=== PATIENT | female | born 1990 | race Caucasian/White ===

== ENCOUNTER 2017-02-13 18:18 | Inpatient (IN) | payer MEDICAID ==
[2017-02-13 19:42] LABS: ROM Internal QC QC Line Present
[2017-02-13] MEDS ORDERED: Oxytocin in LR* 20 UNITS/1,000 ML BAG IVPB SCH (20:00)
[2017-02-13 20:45] LABS: Hematocrit 39 % (35-47); Hemoglobin 13.2 g/dl (12.0-16.0); Mean Corpuscular HGB Conc 34 g/dl (31-36); Mean Corpuscular Hemoglobin 30 pg (27-31); Mean Corpuscular Volume 88 fL (80-97); Mean Platelet Volume 9 um3 (7.4-10.4); Red Blood Count 4.39 10^6/ul (4.0-5.4); Red Cell Distribution Width 13 % (10.5-15); White Blood Count 12.9 10^3/ul (3.5-10.8)
[2017-02-13] MEDS ORDERED: OBEPIDURAL* 250 ML ONE (22:11)
[2017-02-13] MEDS ORDERED: Sodium Citrate/Citric Acid* 15 ML UDC PO PRN (23:04)
[2017-02-13] MEDS ORDERED: Famotidine TAB* 20 MG PO PRN (23:04)
[2017-02-13] MEDS ORDERED: Phenylephrine IV* 40 MCG/ML 10 ML SYRINGE IV PUSH PRN ×2 (23:04)
[2017-02-13] MEDS ORDERED: OBEPIDURAL* 250 ML EPIDURAL SCH (23:45)
[2017-02-14] MEDS ORDERED: Witch Hazel PAD* JAR TOPICAL PRN (00:18)
[2017-02-14] MEDS ORDERED: Glycerin ADULT SUPP PR PRN (00:18)
[2017-02-14] MEDS ORDERED: Dibucaine 1% 28.35 GM TUBE PR PRN (00:18)
[2017-02-14] MEDS: Ibuprofen TAB* 600 MG PO PRN ×3 (03:28→17:16)
[2017-02-14] MEDS: Acetaminophen TAB* 325 MG PO PRN ×2 (08:32→20:11)
[2017-02-14] MEDS: Simethicone CHEW TAB* 80 MG PO SCH ×2 (08:32→12:30)
[2017-02-14] MEDS: Docusate CAP* 100 MG PO SCH ×3 (08:32→20:11)
[2017-02-15] MEDS: Ibuprofen TAB* 600 MG PO PRN ×2 (00:23→07:55)
[2017-02-15 08:11] VITALS: BP 139/90
[2017-02-15 08:12] LABS: Hematocrit 42 % (35-47); Hemoglobin 14.2 g/dl (12.0-16.0); Mean Corpuscular HGB Conc 34 g/dl (31-36); Mean Corpuscular Hemoglobin 30 pg (27-31); Mean Corpuscular Volume 89 fL (80-97); Mean Platelet Volume 9 um3 (7.4-10.4); Red Blood Count 4.71 10^6/ul (4.0-5.4); Red Cell Distribution Width 13 % (10.5-15); White Blood Count 10.9 10^3/ul (3.5-10.8)
[2017-02-15] MEDS ORDERED: Ferrous Gluconate TAB* 324 MG TAB PO SCH (09:00)
[2017-02-15] MEDS ORDERED: Varicella Virus Vaccine Live* 0.5 ML VIAL SUBCUT ONE (10:04)
[2017-02-15] MEDS: Docusate CAP* 100 MG PO SCH (11:02)
== END 2017-02-15 14:15 | disposition home or self-care (01) | DRG 560 ==
LOC: MCHOBOUT 18:18 → MCHOB 19:49
PROVIDERS: ADMIT Midwife; ATTEND Midwife
PROC: 10E0XZZ Delivery of Products of Conception, External Approach (ICD-10-PCS; principal; 2017-02-13)
PROC: 4A1HXCZ Monitoring of Products of Conception, Cardiac Rate, External Approach (ICD-10-PCS; 2017-02-13)
DX: O69.81X0 Labor and delivery complicated by cord around neck, without compression, not applicable or unspecified (principal); Z88.0 Allergy status to penicillin; O69.89X0 Labor and delivery complicated by other cord complications, not applicable or unspecified; Z88.1 Allergy status to other antibiotic agents; Z37.0 Single live birth; Z3A.37 37 weeks gestation of pregnancy
CPT/HCPCS: 36415; 84112; 85025; 86850; 86900; 86901; A9270-GY

== ENCOUNTER 2017-04-15 13:17 | Emergency (ER) | payer OTHER ==
[2017-04-15 13:35] VITALS: BP 130/86
--- NOTE | 2017-04-15 14:36 | UC ---
Dental HPI - HPI Summary HPI Summary: BROKE TOOTH TWO WEEKS AGO TODAY HAS HAS RIGHT SIDED DENTAL SWELLING. NO FEVER. NO PRIMARY CARE. HAS DENTAL APPOINTMENT SCHEDULED FOR NEXT WEEK. - History of Current Complaint Chief Complaint: UCDentalProblem Stated Complaint: DENTAL COMPLAINT Time Seen by Provider: 04/15/17 13:31 Hx Obtained From: Patient Hx Last Menstrual Period: 03/14/17 Onset/Duration: Gradual Onset, Lasting Days, Still Present Severity: Moderate Pain Intensity: 3 Pain Scale Used: 0-10 Numeric Aggravating: Chewing Alleviating: OTC Meds Related History: Previous Dental Care on Same Tooth, Swelling - Allergies/Home Medications Allergies/Adverse Reactions: Allergies Allergy/AdvReac Type Severity Reaction Status Date / Time Penicillin G Allergy Rash Verified 04/15/17 13:34 Amoxicillin AdvReac Intermediate Rash Verified 04/15/17 13:34 PMH/Surg Hx/FS Hx/Imm Hx Previously Healthy: Yes Other History Of: Negative For: Anticoagulant Therapy - Surgical History Surgical History: Yes Surgery Procedure, Year, and Place: Tendonitis surgery LEFT wrist - Family History Known Family History: Positive: None - Social History Occupation: Unemployed Alcohol Use: Occasionally Substance Use Type: None Smoking Status (MU): Heavy Every Day Tobacco Smoker Type: eCigarettes Amount Used/How Often: 1/2ppd Have You Smoked in the Last Year: Yes Household Exposure Type: Cigarettes Cessation Counseling: Counseled 3+Min - 10 Min - Immunization History Most Recent Influenza Vaccination: unknown Most Recent Tetanus Shot: 05/31/13 Most Recent Pneumonia Vaccination: never received Review of Systems Constitutional: Negative Skin: Negative Eyes: Negative ENT: Dental Pain Respiratory: Negative Cardiovascular: Negative Gastrointestinal: Negative Genitourinary: Negative Motor: Negative Neurovascular: Negative Musculoskeletal: Negative Neurological: Negative Psychological: Negative All Other Systems Reviewed And Are Negative: Yes Physical Exam Triage Information Reviewed: Yes Appearance: Well-Appearing, No Pain Distress, Well-Nourished Vital Signs: Initial Vital Signs Temp 97.6 F 04/15/17 13:30 Pulse 107 04/15/17 13:30 Resp 16 04/15/17 13:30 BP 130/86 04/15/17 13:30 Pulse Ox 100 04/15/17 13:30 Vital Signs Reviewed: Yes Eye Exam: Normal ENT Exam: Normal ENT: Positive: Normal ENT inspection Dental: Positive: Gross Decay/Caries @, Dental Fracture @ - 3,4,5, Abscess @ - 3 ,4,5 Neck exam: Normal Respiratory Exam: Normal Respiratory: Positive: Chest non-tender, Lungs clear, Normal breath sounds, No respiratory distress, No accessory muscle use Cardiovascular Exam: Normal Cardiovascular: Positive: RRR, No Murmur Abdominal Exam: Normal Musculoskeletal Exam: Normal Musculoskeletal: Positive: Strength Intact, ROM Intact Neurological Exam: Normal Psychological Exam: Normal Skin Exam: Normal Dental Complaint Course/Dx - Differential Dx/Diagnosis Differential Diagnosis/Dx: Dental Abscess, Dental Caries, Fractured Tooth Provider Diagnoses: DENTAL ABSCESS 3,4,5; CARIES Discharge - Discharge Plan Condition: Stable Disposition: HOME Prescriptions: Acetaminop/Codeine 30 MG TAB* [Tylenol/Codeine 30 MG TAB*] 1 tab PO Q8H PRN #9 tab MDD three tabs PRN Reason: Pain Clindamycin Cap(NF) [Clindamycin Cap 300 mg Cap(NF)] 300 mg PO TID #30 cap Patient Education Materials: Toothache (ED), Dental Abscess (ED) Referrals: No Primary Care Phys,NOPCP [Primary Care Provider] - [facility] [place] [facility] [place]] Additional Instructions: PRIMARY CARE: There are four major types of clinical preventive care: immunizations, screening , behavioral counseling (sometimes referred to as lifestyle changes), and chemoprevention. All four apply throughout the life span. It is important to establish and to have access to a Primary Care Physician, not only for follow- up regrding acute and chronic problems, but also for preventative care.
== END 2017-04-15 14:02 | disposition home or self-care (01) ==
LOC: UCEAST 13:17
DX: K04.7 Periapical abscess without sinus (principal); K02.9 Dental caries, unspecified; Z88.3 Allergy status to other anti-infective agents; Z88.0 Allergy status to penicillin; F17.210 Nicotine dependence, cigarettes, uncomplicated
CPT/HCPCS: 99212; G0463

== ENCOUNTER 2018-09-28 14:20 | Inpatient (IN) | payer OTHER ==
[2018-09-28] MEDS ORDERED: Lactated Ringers 1000 ML Bag* 1,000 ML IV ONE ×2 (14:26→20:55)
[2018-09-28] MEDS ORDERED: Buffered Lidocaine 1% SYRIN* 1 ML/SYRINGE INTRADERM ONE (14:26)
[2018-09-28] MEDS ORDERED: Lactated Ringers 1000 ML Bag* 1,000 ML IV SCH ×3 (15:00→23:45)
[2018-09-28 15:32] LABS: ABS Basophils 0.1 10^3/ul (0-0.2); ABS Eosinophils 0.1 10^3/ul (0-0.6); ABS Lymphocytes 2.3 10^3/ul (1.0-4.8); ABS Monocytes 1.1 10^3/ul (0-0.8); ABS Neutrophils 10.4 10^3/ul (1.5-7.7); ABS Nucleated RBC 0 10^3/ul; Eosinophil % 0.5 %; Hematocrit 39 % (35-47); Hemoglobin 13.3 g/dl (12.0-16.0); Lymphocyte % 16.4 %; Mean Corpuscular HGB Conc 34 g/dl (31-36); Mean Corpuscular Hemoglobin 30 pg (27-31); Mean Corpuscular Volume 88 fL (80-97); Mean Platelet Volume 8.7 fL (7.4-10.4); Nucleated Red Blood Cells % 0.1; Platelet Count 239 10^3/ul (150-450); Red Blood Count 4.44 10^6/ul (4.00-5.40); Red Cell Distribution Width 14 % (10.5-15); White Blood Count 13.9 10^3/ul (3.5-10.8)
--- NOTE | 2018-09-28 17:31 | HP ---
General Information - Reason for Visit labor - General Information Maternal Age: 28 Grav: 5 Para: 4 SAB: 0 IEA: 0 Estimated Due Date: 10/10/18 Determined By: ultrasound at 32 weeks Maternal Blood Type and Rh: AB Positive - Results this Serology/RPR Result: Non-Reactive Rubella Result: Immune HBsAg Result: Negative HIV Result: Negative GBS Culture Result: Negative Past Medical History Delivery History: Hx Uncomplicated Vaginal Delivery Pertinent Past Medical History: See Records - hx GDM, asthma Pertinent Past Surgical History: None Pertinent Family History: See Records - HTN, DM - Antepartal Records Antepartal Records: Reviewed, Complicated by: - late to care, tobacco use Review of Systems Constitutional: Uncomfortable CV Complaint: No Respiratory: Shortness of Breath: No Gastrointestinal: No Nausea/Vomiting, Normal Bowel Movement Genitourinary: No Dysuria, No Bleeding, No Leaking Fluid Musculoskeletal: Contractions, Pressure Neurological: No Headache, No Visual Changes Movement: Normal Exam Allergies/Adverse Reactions: Allergies amoxicillin Allergy (Verified 09/28/18 15:17) Rash Penicillins Allergy (Verified 09/28/18 15:17) Rash BP:139/86, O2: 98%, T:97.8, P:116, R:17 Lab Values - Entire Visit: Laboratory Tests 09/28/18 09/28/18 15:23 15:23 WBC 13.9 H RBC 4.44 Hgb 13.3 Hct 39 MCV 88 MCH 30 MCHC 34 RDW 14 Plt Count 239 MPV 8.7 Neut % (Auto) 74.8 Lymph % (Auto) 16.4 Hartley % (Auto) 7.8 Eos % (Auto) 0.5 Baso % (Auto) 0.5 Absolute Neuts (auto) 10.4 H Absolute Lymphs (auto) 2.3 Absolute Monos (auto) 1.1 H Absolute Eos (auto) 0.1 Absolute Basos (auto) 0.1 Absolute Nucleated RBC 0 Nucleated RBC % 0.1 Blood Type AB Positive Antibody Screen Negative - Measurements Height: 5 ft 1 in Weight: 153 lb Weight in lbs: 153.923508 Body Mass Index (BMI): 28.9 Pre- Weight: 131 lb Weight Gained This : 22 lbs and 0 ozs - Exam Breast: Breast Exam Deferred CVA: No CVA Tenderness Extremities: No Edema Heart: Normal Rhythm/Heart Sounds HEENT: No Significant Findings Lungs: Clear Bilaterally Rectal: Rectal Exam Deferred Reflexes: DTR 2+ Thyroid: No Thyromegaly - Abdominal Exam Abdomen Exam: Fundal Height Consistent with Dates - Ultrasound/Biophysical Profile Ultrasound Status: Not Done Targeted Exam Findings Estimated Weight: 6lbs 13oz Cervical Exam: 7cm Effacement: 100% Station: 0 Presenting Part: Vertex Membrane Status: Bulging Bleeding/Discharge: Bloody Show EFM Findings - External Monitor Findings Baseline Heart Rate: 140 External Monitor Findings: Accelerations Present, No Pattern of Variable or Late Decelerations, Variability Moderate, Baseline Stable Contractions: Irregular, Moderate, 45-90 Seconds Contraction Frequency: 3-10 Assessment/Plan - Assessment 28 y.o. , 38w3d EGA based on third trimester ultrasound, Elevated 1hr GTT (3hr GCT not done), in labor - Obstetrical Risk Factors Obstetrical Risk Factors: Tobacco Use Risk Factors Comment: late to care - Plan Plan: Admit - Anticipate Vaginal Delivery - Date/Time of Admission Date of Admission: 09/28/18 Time of Admission: 15:30
[2018-09-28] MEDS ORDERED: Oxytocin in LR* 20 UNITS/1,000 ML BAG IVPB ONE (20:37)
[2018-09-28] MEDS ORDERED: Bupivacaine 0.25% SDV PF* 10 ML VIAL INJ ONE (20:46)
[2018-09-28] MEDS ORDERED: Famotidine TAB* 20 MG PO PRN (20:55)
[2018-09-28] MEDS ORDERED: EPHEDrine (Pressors)* 50 MG/ML VIAL IV PUSH PRN (20:55)
[2018-09-28] MEDS ORDERED: Phenylephrine IV* 40 MCG/ML 10 ML SYRINGE IV PUSH PRN (20:55)
[2018-09-28] MEDS ORDERED: Sodium Citrate/Citric Acid* 15 ML UDC PO PRN (20:55)
[2018-09-28] MEDS ORDERED: OBEPIDURAL* 250 ML EPIDURAL SCH (21:00)
[2018-09-28] MEDS ORDERED: OBEPIDURAL* 250 ML EPIDURAL ONE (21:05)
--- NOTE | 2018-09-28 21:20 | PN ---
Progress Note - Progress Note Date of Service: 09/28/18 SOAP: Subjective: [Pt comfortable with epidural. Pt reports LOF.] Objective: [BP:123/68, P: 125 FHT: 145bpm, + accels, -decels, moderate variability] Assessment: [28 y.o. , FT, active labor] Plan: [1) anticipate vaginal delivery]
[2018-09-28] MEDS ORDERED: Carboprost Tromethamine* 250 MCG INJ ONE (22:47)
[2018-09-28] MEDS ORDERED: Methylergonovine INJ* 0.2 MG/ML 1ML AMP ONE (23:00)
[2018-09-28] MEDS ORDERED: Glycerin ADULT SUPP PR PRN (23:26)
[2018-09-28] MEDS ORDERED: Dibucaine 1% 28.35 GM TUBE PR PRN (23:26)
[2018-09-28] MEDS ORDERED: Witch Hazel PAD* JAR TOPICAL PRN (23:26)
[2018-09-28] MEDS ORDERED: Nicotine Inhaler* 10 MG AMP INH PRN (23:29)
--- NOTE | 2018-09-28 23:33 | PROCNOTE ---
[facility] OB: Delivery Note - Delivery A Date of : 09/28/18 Time of : 23:15 Sex: Female Score 1 Minute: 9 Score 5 Minutes: 9 Gestational Age in Weeks and Days at Delivery: 38 Weeks and 2 Days Delivery Method: Spontaneous Vaginal Labor: Spontaneous Amniotic Fluid: Clear Estimated Blood Loss: 150 Anesthesia/Analgesia: CEI for Labor Delivered By: Brooke Chen - Nursery Level of Nursery: Regular/Bedside - Perineum Perineal Injury: None/Intact Perineal Repair: None - Events Delivery Events of Note: Pitocin Only After Delivery Delivery Events of Note Comment: nuchal cord x 1, delivered through
[2018-09-28] MEDS ORDERED: Oxytocin in LR* 20 UNITS/1,000 ML BAG IVPB SCH (23:45)
[2018-09-29] MEDS: Ibuprofen TAB* 600 MG PO PRN ×4 (04:41→23:58)
[2018-09-29 05:26] LABS: ABS Basophils 0.2 10^3/ul (0-0.2); ABS Eosinophils 0.1 10^3/ul (0-0.6); ABS Lymphocytes 2.7 10^3/ul (1.0-4.8); ABS Monocytes 1.4 10^3/ul (0-0.8); ABS Neutrophils 11.6 10^3/ul (1.5-7.7); ABS Nucleated RBC 0 10^3/ul; Eosinophil % 0.5 %; Hematocrit 36 % (35-47); Hemoglobin 12.2 g/dl (12.0-16.0); Lymphocyte % 16.7 %; Mean Corpuscular HGB Conc 34 g/dl (31-36); Mean Corpuscular Hemoglobin 29 pg (27-31); Mean Corpuscular Volume 88 fL (80-97); Mean Platelet Volume 8.7 fL (7.4-10.4); Nucleated Red Blood Cells % 0; Platelet Count 217 10^3/ul (150-450); Red Blood Count 4.13 10^6/ul (4.00-5.40); Red Cell Distribution Width 14 % (10.5-15); White Blood Count 15.9 10^3/ul (3.5-10.8)
[2018-09-29] MEDS: Docusate CAP* 100 MG PO SCH ×3 (08:28→20:25)
[2018-09-29] MEDS: Acetaminophen TAB* 325 MG PO PRN ×3 (08:28→20:25)
[2018-09-29] MEDS ORDERED: Simethicone TAB* 80 MG TAB.CHEW PO SCH (08:30)
[2018-09-29] MEDS ORDERED: Pneumococcal *Vac Polyvalent 0.5 ML VIAL IM ONE (09:00)
[2018-09-29] MEDS ORDERED: Ferrous Gluconate TAB* 324 MG TAB PO SCH (09:00)
[2018-09-29] MEDS ORDERED: medroxyPROGESTERone ACETATE (DEPOT)* 150 MG/ML 1 ML IM ONE ×2 (09:31→18:00)
[2018-09-29 19:47] VITALS: BP 136/78
[2018-09-30] MEDS: Ibuprofen TAB* 600 MG PO PRN ×2 (06:12→11:46)
[2018-09-30] MEDS: Docusate CAP* 100 MG PO SCH (10:08)
== END 2018-09-30 13:30 | disposition home or self-care (01) | DRG 560 ==
LOC: MCHOBOUT 14:20 → MCHOB 14:45
PROVIDERS: ADMIT Midwife; ATTEND Midwife
PROC: 10E0XZZ Delivery of Products of Conception, External Approach (ICD-10-PCS; principal; 2018-09-28)
DX: O60.23X1 Term delivery with preterm labor, third trimester, fetus 1 (principal); Z37.0 Single live birth; O99.334 Smoking (tobacco) complicating childbirth; F17.210 Nicotine dependence, cigarettes, uncomplicated; O69.81X0 Labor and delivery complicated by cord around neck, without compression, not applicable or unspecified; O09.33 Supervision of pregnancy with insufficient antenatal care, third trimester; Z3A.38 38 weeks gestation of pregnancy
CPT/HCPCS: 36415; 85025; 86850; 86900; 86901; 90686; 90732; A9270-GY; J1050; J2210; J3490

== ENCOUNTER 2019-04-15 17:44 | Emergency (ER) | payer OTHER ==
[2019-04-15 17:58] VITALS: BP 147/101
== END 2019-04-15 20:00 | disposition left against medical advice (07) ==
LOC: ED 17:44
DX: Z53.21 Procedure and treatment not carried out due to patient leaving prior to being seen by health care provider (principal); R51 Headache; Z79.899 Other long term (current) drug therapy
CPT/HCPCS: 99281

== ENCOUNTER 2019-05-06 18:58 | Emergency (ER) | payer OTHER ==
[2019-05-06] MEDS ORDERED: Lidocaine 1% MPF ** 5 ML VIAL INJ ONE (19:51)
--- NOTE | 2019-05-06 19:59 | ED ---
Neck Pain - HPI Summary HPI Summary: The pt is a 29 yr old female presenting [place] [facility] [place]/o neck pain for the past 2 months. She states that she was taking dough out of a cooler 2 months [employer] and pulled a muscle in her neck. She states that she saw and protection specialist who diagnosed her with muscle spasms. She visited the ED [employer] and was prescribed Flexeril that has not helped, and she mentions that she will start physical therapy soon. She rates her pain severity due to the neck pain an 8/ 10. She mentions that she has tried heat and ice that have not helped the pain. She notes that the neck pain is aggravated by moving her neck. She also reports headache, swelling in neck and nausea but denies fever. Allergies noted. Medications reviewed. - History of Current Complaint Chief Complaint: EDNeckComplaint Stated Complaint: NECK PAIN PER PT Time Seen by Provider: 05/06/19 19:32 Hx Obtained From: Patient Hx Last Menstrual Period: 03/14/17 Onset/Duration Of Injury/Symptoms: Months Timing: Constant Onset/Duration: Sudden Onset, Started weeks ago, Still Present Severity Initially: Severe Severity Currently: Severe Pain Intensity: 8 Pain Scale Used: 0-10 Numeric Location: Discrete At: - neck, and head Aggravating Factors: Movement Alleviating Factors: Nothing Associated Signs & Symptoms: Positive: Swelling - at neck base, Headache. Negative: Fever - Allergies/Home Medications Allergies/Adverse Reactions: Allergies Allergy/AdvReac Type Severity Reaction Status Date / Time amoxicillin Allergy Rash Verified 05/06/19 19:06 Penicillins Allergy Rash Verified 05/06/19 19:06 PMH/Surg Hx/FS Hx/Imm Hx Endocrine/Hematology History: Denies: Hx Anticoagulant Therapy, Hx Diabetes, Hx Thyroid Disease Cardiovascular History: Denies: Hx Hypertension, Hx Pacemaker/ICD Respiratory History: Reports: Hx Asthma Denies: Hx Chronic Obstructive Pulmonary Disease (COPD) GI History: Denies: Hx Ulcer History: Denies: Hx Renal Disease Neurological History: Denies: Hx Dementia, Hx Seizures Psychiatric History: Denies: Hx Substance Abuse - Surgical History Surgery Procedure, Year, and Place: Tendonitis surgery LEFT wrist Infectious Disease History: No Infectious Disease History: Denies: Hx Hepatitis, Hx Human Immunodeficiency Virus (HIV), Traveled Outside the [place] in Last 30 Days - Family History Known Family History: Negative: Renal Disease - Social History Alcohol Use: Occasionally Substance Use Type: Reports: None Smoking Status (MU): Light Every Day Tobacco Smoker Type: Randi Amount Used/How Often: 1/2ppd Have You Smoked in the Last Year: Yes Review of Systems Negative: Fever Positive: Nausea Musculoskeletal: Other - pos - neck pain, swelling at base of neck Positive: Headache All Other Systems Reviewed And Are Negative: Yes Physical Exam - Summary Physical Exam Summary: Constitutional: Well-developed, Well-nourished, Alert. (-) Distressed Skin: Warm, Dry HENT: Normocephalic; Atraumatic Eyes: Conjunctiva normal Neck: Musculoskeletal ROM. (-) JVD, (-) Stridor, (-) Tracheal deviation Cardio: Rhythm regular, rate normal, Heart sounds normal; Intact distal pulses; The pedal pulses are 2+ and symmetric. Radial pulses are 2+ and symmetric. (-) Murmur Pulmonary/Chest wall: Effort normal. (-) Respiratory distress, (-) Wheezes, (-) Rales Abd: Soft, (-) tenderness, (-) Distension, (-) Guarding, (-) Rebound Musculoskeletal: (-) Edema, pain in the left occiput down to the left mid thoracic spine, all lateral to the midline, pain when pt rotates head to the left Lymph: (-) Cervical adenopathy Neuro: Alert, Oriented x3 Psych: Mood and affect Normal Triage Information Reviewed: Yes Vital Signs On Initial Exam: Initial Vitals Temp Pulse Resp BP Pulse Ox 98.5 F 92 20 162/115 100 05/06/19 19:01 05/06/19 19:01 05/06/19 19:01 05/06/19 19:01 05/06/19 19:01 Vital Signs Reviewed: Yes Diagnostics - Vital Signs Vital Signs Temp Pulse Resp BP Pulse Ox 05/06/19 19:01 98.5 F 92 20 162/115 100 - Laboratory Lab Statement: Any lab studies that have been ordered have been reviewed, and results considered in the medical decision making process. Neck Course/Dx - Course Course Of Treatment: Patient is here with chronic trapezius strain on the left which has caused her to develop migraine headaches. Patient is overall well- appearing with red flag symptoms of headache or neck pain. Patient is in the process of getting physical therapy and starts next week. Patient paramedics nerve block clear with no relief. Patient was started on a course of steroids and discharged with Fioricet. - Diagnoses Provider Diagnoses: Trapezius strain, Migraine headache Discharge ED - Sign-Out/Discharge Documenting (check all that apply): Patient Departure - discharge Patient Received Moderate/Deep Sedation with Procedure: No - Discharge Plan Condition: Stable Disposition: HOME Prescriptions: Butalb/Acetamin/Caff TAB* [Fioricet TAB*] 1 tab PO Q6H PRN #12 tab MDD 4 tabs PRN Reason: Headache predniSONE [Prednisone 20 MG TAB] 40 mg PO QAM 4 Days #8 tablet Patient Education Materials: Cervical Strain (ED), Neck Pain (ED) Referrals: Care [facility] [Outside] - 3 Days Additional Instructions: PLEASE RETURN TO EMERGENCY DEPARTMENT FOR ANY NEW OR WORSENING SYMPTOMS. Please follow up with your primary care physician. Please make all follow-ups in 1-3 days unless I advise you otherwise. - Billing Disposition and Condition Condition: STABLE Disposition: Home - Attestation Statements Document Initiated by Jony: Yes Documenting Scribe: Ji Blue Provider For Whom Jony is Documenting (Include Credential): Lester Haskins MD Scribe Attestation: IJi, scribed for Lester Haskins MD on 05/06/19 at 213. Scribe Documentation Reviewed: Yes Provider Attestation: The documentation as recorded by the Ji fajardo accurately reflects the service I personally performed and the decisions made by me, Lester Haskins MD Status of Scribe Document: Viewed
[2019-05-06] MEDS ORDERED: predniSONE TAB* 20 MG PO ONE (20:45)
[2019-05-06] MEDS ORDERED: Butalb/Acetamin/Caff TAB* 1 TAB PO ONE (20:45)
[2019-05-06 21:15] VITALS: BP 124/79
== END 2019-05-06 20:50 | disposition home or self-care (01) ==
LOC: ED 18:58
DX: S46.812A Strain of other muscles, fascia and tendons at shoulder and upper arm level, left arm, initial encounter (principal); G43.909 Migraine, unspecified, not intractable, without status migrainosus; X58.XXXA Exposure to other specified factors, initial encounter; Y92.9 Unspecified place or not applicable; J45.909 Unspecified asthma, uncomplicated; F17.290 Nicotine dependence, other tobacco product, uncomplicated; Z88.1 Allergy status to other antibiotic agents; Z88.0 Allergy status to penicillin
CPT/HCPCS: 99282; A9270-GY; J7512

== ENCOUNTER 2020-05-08 05:05 | Inpatient (IN) ==
[2020-05-08 05:35] LABS: Hematocrit 37 % (35-47); Hemoglobin 12.6 g/dL (12.0-16.0); Mean Corpuscular HGB Conc 34 g/dL (31-36); Mean Corpuscular Hemoglobin 31 pg (27-31); Mean Corpuscular Volume 89 fL (80-97); Mean Platelet Volume 8.6 fL (7.4-10.4); Platelet Count 222 10^3/uL (150-450); Red Blood Count 4.11 10^6 /uL (3.70-4.87); Red Cell Distribution Width 13 % (10-15); White Blood Count 15.5 10^3/uL (3.5-10.8)
[2020-05-08] MEDS ORDERED: Lactated Ringers 1000 ml BAG 1,000 ML IV ONE (05:35)
[2020-05-08] MEDS ORDERED: OBEPIDURAL 250 ML EPIDURAL ONE (05:40)
[2020-05-08] MEDS ORDERED: Oxytocin in LR 20 UNITS/1,000 ML BAG IVPB ONE ×2 (05:58→08:39)
[2020-05-08] MEDS ORDERED: Clindamycin 900 MG/D5W BAG 900 MG/50 ML BAG IVPB SCH (06:00)
[2020-05-08] MEDS ORDERED: Clindamycin 900 MG/D5W BAG 900 MG/50 ML BAG IVPB ONE (06:00)
[2020-05-08] MEDS ORDERED: Lactated Ringers 1000 ml BAG 1,000 ML IV SCH ×2 (06:00→07:00)
[2020-05-08] MEDS ORDERED: Dibucaine 1% OINT 28.35 GM TUBE PR PRN (06:41)
[2020-05-08] MEDS ORDERED: Witch Hazel PAD JAR TOPICAL PRN (06:41)
[2020-05-08] MEDS ORDERED: Glycerin ADULT 2.4 gm SUPP PR PRN (06:41)
[2020-05-08] MEDS ORDERED: Oxytocin in LR 20 UNITS/1,000 ML BAG IVPB SCH (10:00)
[2020-05-08 10:25] LABS: Urine Benzodiazepine Screen None Detected (None Detect); Urine Cannabinoids Screen None Detected (None Detect); Urine Opiates Screen None Detected (None Detect)
[2020-05-08] MEDS ORDERED: Lidocaine 1% VIAL 10 MG/ML VIAL ONE (10:31)
[2020-05-09 07:45] LABS: ABS Basophils 0.1 10^3/ul (0-0.2); ABS Eosinophils 0.2 10^3/ul (0-0.6); ABS Lymphocytes 3.7 10^3/ul (1.0-4.8); ABS Neutrophils 5.5 10^3/ul (1.5-7.7); Eosinophil % 2.2 %; Hematocrit 34 % (35-47); Hemoglobin 12.2 g/dL (12.0-16.0); Lymphocyte % 35.2 %; Mean Corpuscular HGB Conc 36 g/dL (31-36); Mean Corpuscular Hemoglobin 32 pg (27-31); Mean Corpuscular Volume 90 fL (80-97); Mean Platelet Volume 8.9 fL (7.4-10.4); Nucleated Red Blood Cells % 0.1; Platelet Count 204 10^3/uL (150-450); Red Blood Count 3.81 10^6 /uL (3.70-4.87); Red Cell Distribution Width 13 % (10-15); White Blood Count 10.5 10^3/uL (3.5-10.8)
[2020-05-09] MEDS ORDERED: Influenza VAC *QUAD* 2020-21* 0.5 ML SYRINGE IM ONE (09:00)
[2020-05-10 08:24] VITALS: BP 134/76
== END 2020-05-10 10:41 | disposition home or self-care (01) | DRG 560 ==
LOC: MCHOBOUT 05:05 → MCHOB 05:18
PROVIDERS: ADMIT Obstetrics & Gynecology; ATTEND Obstetrics & Gynecology